=== PATIENT | female | born 1960 | race Caucasian/White ===

== ENCOUNTER → 2019-07-14 | Outpatient (CLI) | payer BC ==
--- NOTE | 2019-07-14 08:45 | RAD ---
Indication:Right Quadrant pain. TECHNIQUE: Grayscale, color Doppler and spectral waveform is of the abdomen obtained. COMPARISON:None FINDINGS: Visualized pancreas is within normal limits. Pancreatic tail not visualized due to overlying bowel gas. IVC is patent. Liver is mildly enlarged measuring 19.5 cm in longest dimension with diffusely heterogenous echogenicity. Main portal vein is patent with hepatopedal flow. No gallstones, pericholecystic fluid or gallbladder wall thickening. CBD measures 4 mm in diameter and is within normal limits. Right kidney measures 12.3 cm in length without hydronephrosis. IMPRESSION: 1. Mild hepatomegaly. Heterogenous appearance of the liver may be secondary to hepatic inflammation or chronic liver disease. Nonemergent MRI of the abdomen with IV contrast recommended. 2. No cholelithiasis or sonographic evidence of acute cholecystitis. Electronically signed by: Neville Roberson DO (07/14/2019 8:42 AM) [facility]
== END | disposition home or self-care (01) ==
LOC: US 07:34
PROVIDERS: ATTEND Nurse Practitioner Family
DX: R16.0 Hepatomegaly, not elsewhere classified (principal)
CPT/HCPCS: 76705